=== PATIENT | male | born 1960 | race Caucasian/White ===

== ENCOUNTER 2021-04-14 13:34 | Emergency (ER) | payer OTHER ==
[~2021-04-14] VITALS: Ht 172.7 cm; Wt 73.5 kg
[2021-04-14 13:54] VITALS: BP 121/77
--- NOTE | 2021-04-14 14:08 | NUR ---
THE PATIENT BIBS FOR C/O ELBOW SWELLING X 3 DAYS. NON TRAUMATIC. NO APPARENT DEFORMITY NOTED. WILL CONTINUE TO MONITOR THE PATIENT.
[2021-04-14] MEDS ORDERED: IBUP-1957 PO (14:46)
== END 2021-04-14 16:28 | disposition home or self-care (01) ==
LOC: ER 13:34
DX: M70.21 Olecranon bursitis, right elbow (principal); Y93.89 Activity, other specified